=== PATIENT | male | born 1935 | race Caucasian/White ===

== ENCOUNTER 2018-12-06 14:38 | Emergency (ER) | payer MEDICARE ==
[~2018-12-06] VITALS: Ht 175.3 cm; Wt 72.6 kg
[~2018-12-06 14:38] MED LIST: ALPR1; ALPR1 PO; AMOCLA875 PO; ASPI325 PO; ATEN25 PO; ATOR40TA PO; BENZ100A PO; BRIM.15SO OD; DOXY100 PO; EYE; FLUT.05NI; HYDACE5 PO; LATA.005SO BOTHEYES; LATA.005SO OD; LIDO2L MM; PERIDEX PO; ROSU10TA; SULTRIDS PO; TIMDOROPSO OD; TIMO.5OPSO OS
[2018-12-06 15:24] LABS: BASOPHILS ABSOLUTE AUTO 0.03 K/mm3 (0.00-0.23); BASOPHILS PERCENT AUTO 1 % (0-2); EOSINOPHILS ABSOLUTE AUTO 0.12 K/mm3 (0.00-0.68); EOSINOPHILS PERCENT AUTO 3 % (0-6); Hematocrit 41.6 % (37.0-53.0); Hemoglobin 14.3 g/dL (13.5-17.5); IMMATURE GRAN PERCENT AUTO 0 % (0-1); LYMPHOCYTES ABSOLUTE AUTO 1.45 K/mm3 (0.84-5.20); LYMPHOCYTES PERCENT AUTO 36 % (21-46); MONOCYTES PERCENT AUTO 12 % (4-13); Mean Corpuscular HGB 33.3 pg (26.0-34.0); Mean Corpuscular HGB Conc 34.4 g/dL (31.5-36.5); Mean Corpuscular Volume 97 fL (80-100); NEUTROPHILS ABSOLUTE AUTO 1.97 K/mm3 (1.96-9.15); NEUTROPHILS PERCENT AUTO 49 % (41-73); Platelet Count 134 K/mm3 (150-400); RDW Coefficient Variation 12.2 % (11.7-14.2); Red Blood Cell Count 4.29 M/mm3 (4.30-5.90); White Blood Cell Count 4.07 K/mm3 (4.00-11.30)
[2018-12-06 15:49] LABS: Alanine Aminotransfer (ALT/SGP 39 U/L (12-78); Albumin, Blood 3.8 g/dL (3.4-5.0); Albumin/Globulin Ratio 1.3 (0.8-1.8); Alk Phos 94 U/L (50-136); Anion Gap 4 mmol/L (6-16); Aspartate Aminotrans (AST/SGOT 28 U/L (12-37); Bilirubin, Total 1.1 mg/dL (0.1-1.0); Blood Urea Nitrogen 11 mg/dL (8-24); Bun/Creatinine Ratio 15.3 (12.0-20.0); CO2, Blood 29 mmol/L (21-32); Calcium, Blood 8.8 mg/dL (8.5-10.1); Chloride, Blood 97 mmol/L (98-108); Creatinine, Blood 0.72 mg/dL (0.60-1.20); Glomerular Filtration Rate >60 (60-); Glucose, Blood 104 mg/dL (70-99); Potassium, Blood 4.5 mmol/L (3.5-5.5); Sodium, Blood 130 mmol/L (136-145); Total Protein, Blood 6.8 g/dL (6.4-8.2); Troponin I <0.015 ng/mL (0.000-0.040)
[2018-12-06 16:09] LABS: Magnesium, Blood 2.1 mg/dL (1.6-2.4)
[2018-12-06 16:11] LABS: Thyroid Stimulating Hormone 2.91 uIU/mL (0.360-4.800)
== END 2018-12-06 17:07 | disposition home or self-care (01) ==
LOC: ER 14:38
PROVIDERS: Emergency Medicine; Physician Assistant
DX: R00.2 Palpitations (principal); Z85.810 Personal history of malignant neoplasm of tongue; Z95.1 Presence of aortocoronary bypass graft; Z79.899 Other long term (current) drug therapy
CPT/HCPCS: 36415; 71046; 80053; 83735; 84443; 84484; 85025; 93005; 93010; 99285-25

== ENCOUNTER → 2019-02-03 | Outpatient (CLI) | payer MEDICARE | END | disposition home or self-care (01) | LOC: LAB 17:14 → LAB SHORT 17:14 | DX: R82.998 Other abnormal findings in urine (principal) | CPT/HCPCS: 87077; 87086; 87186 ==

== ENCOUNTER → 2019-07-01 | Outpatient (CLI) | payer MEDICARE | END | disposition home or self-care (01) | LOC: LAB SHORT 12:52 → LAB 12:52 | DX: R30.0 Dysuria (principal); R82.998 Other abnormal findings in urine | CPT/HCPCS: 87086 ==

== ENCOUNTER → 2019-09-15 | Outpatient (CLI) | payer MEDICARE | END | disposition home or self-care (01) | LOC: LAB SHORT 17:25 → LAB 17:25 | DX: R30.0 Dysuria (principal) | CPT/HCPCS: 87077; 87086; 87186 ==

== ENCOUNTER → 2020-12-24 | Outpatient (CLI) | payer MEDICARE, OTHER | END | disposition home or self-care (01) | LOC: LAB 08:54 → LAB SHORT 08:54 | DX: L57.0 Actinic keratosis (principal); L57.8 Other skin changes due to chronic exposure to nonionizing radiation | CPT/HCPCS: 88305 ==

== ENCOUNTER → 2021-11-04 | Outpatient (CLI) | payer MEDICARE, OTHER ==
[~2021-11-04] MED LIST changes: +AMLO10 PO; +ATORVASTATIN CA20 MG PO; +BRIMONIDINE TART5 M2 BOTHEYES; +K-PHOS NEUTRAL PO; +LATANOPROST2.5 M3 BOTHEYES; +MELA3 PO; +SODCHL1 PO; +TRAZ100 PO; +XANAX PO
== END | disposition home or self-care (01) ==
LOC: LAB SHORT 08:36 → PLD 08:36
DX: D48.5 Neoplasm of uncertain behavior of skin (principal)
CPT/HCPCS: 88305

== ENCOUNTER 2022-06-10 09:51 | Emergency (ER) | payer MEDICARE, OTHER ==
[~2022-06-10] VITALS: Ht 175.3 cm; Wt 70.3 kg
[2022-06-10 11:10] LABS: Influenza B, PCR NEGATIVE (NEGATIVE); Resp Syncytial Virus, PCR NEGATIVE (NEGATIVE); SARS-Cov-2 (COVID-19) PCR, MMC NEGATIVE (NEGATIVE)
[2022-06-10 11:39] LABS: Influenza A, PCR POSITIVE (NEGATIVE)
== END 2022-06-10 10:17 | disposition home or self-care (01) ==
LOC: ER 09:51
PROVIDERS: Physician Assistant
DX: J10.1 Influenza due to other identified influenza virus with other respiratory manifestations (principal); E78.5 Hyperlipidemia, unspecified; Z20.822 Contact with and (suspected) exposure to COVID-19; Z79.899 Other long term (current) drug therapy
CPT/HCPCS: 0241U